=== PATIENT | female | born 1980 | race African-American/Black ===

== ENCOUNTER 2019-11-01 05:30 | Emergency (ER) | payer MEDICAID ==
[~2019-11-01] VITALS: Ht 154.9 cm; Wt 108.2 kg
[~2019-11-01 05:30] MED LIST: NORCO 325 MG-51 TAB PO
[2019-11-01 05:36] VITALS: TEMP 97.9
[2019-11-01 06:44] LABS: BASO # 0.1 (0.0-0.2); BASO % 0.8 % (0.0-2.0); EOS # 0.4 (0.0-0.7); EOS % 5.3 % (0-4.0); GRAN # 3.2 (1.4-6.5); GRAN % 41.8 % (42.2-75.2); HEMOGLOBIN 12.1 g/dl (12.5-16.0); LYMPH # 3.1 (1.2-3.4); MEAN CELL VOLUME 86 fl (80.0-100.0); MEAN CORPUSCULAR HEMOGLOBIN 28 pg (27.0-31.0); MEAN CORPUSCULAR HGB CONC 33 g/dl (33.0-37.0); MEAN PLATELET VOLUME 10.2 fl (7.4-10.4); MONO # 0.8 (0.1-0.6); PLATELET COUNT 319 K/mm3 (130-400); REDCELL DISTRIBUTION WIDTH-CV 13.8 % (11.5-14.5)
[2019-11-01 06:51] LABS: HEMATOCRIT 36.9 % (37.0-47.0)
[2019-11-01 06:54] LABS: ALBUMIN 3.9 gm/dL (3.5-5.0); BILIRUBIN,TOTAL 0.6 mg/dL (0.0-1.0); CALCIUM 9.6 mg/dL (8.4-10.2); CREATININE, serum 0.87 (0.52-1.25); POTASSIUM 4.2 mmol/L (3.4-5.0); TOTAL PROTEIN 7.6 gm/dL (6.4-8.2)
[2019-11-01] MEDS ORDERED: MEDROL 4MG DOSPA4 MG PO (07:19)
[2019-11-01 08:35] VITALS: PULSE 72
[2019-11-01] MEDS ORDERED: CLEOCIN HCL300 MG PO (08:36)
== END 2019-11-01 08:35 | disposition home or self-care (01) ==
LOC: COL.ER 05:30
PROVIDERS: Emergency Medicine
DX: R21 Rash and other nonspecific skin eruption (principal)
CPT/HCPCS: J7030; J7512

== ENCOUNTER 2019-12-29 05:33 | Day surgery (SDC) | payer MEDICAID ==
[~2019-12-29] VITALS: Ht 154.9 cm; Wt 108.0 kg
[~2019-12-29 05:33] MED LIST changes: +CLEOCIN HCL300 MG PO; +MEDROL 4MG DOSPA4 MG PO
[2019-12-29 06:08] VITALS: BP 137/107; PULSE 61; TEMP 97.3
--- NOTE | 2019-12-29 06:58 | NUR ---
Nursing staff is unable to get a PIV started after 2 attempts. TABLE MAKER, Willie Lewis, is notified and comes to the bedside to attempt. He is aware that the patient has not received IV Pepcid, as no access has been obtained.
--- NOTE | 2019-12-29 09:05 | NUR ---
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 She is escorted to the restroom by staff, voids, and returns to room.
[2019-12-29 09:20] VITALS: BP 130/78; PULSE 52; TEMP 97.1
--- NOTE | 2019-12-29 09:20 | NUR ---
Patient arrives to [facility] [place] [facility] via cart, accompanied by PNEUMATIC PRESS HAND Cassandra. She is sitting up in bed, alert and oriented. Monitoring is applied - VSS on room air. She denies pain or nausea. She is offered and receives juice and toast to eat. She has her call light in reach. She denies other needs at this time. Will continue to monitor.
[2019-12-29 09:35] VITALS: BP 136/83; PULSE 57
--- NOTE | 2019-12-29 09:35 | NUR ---
VSS on room air. Denies pain or nausea. Tolarating PO well. She ate 2 pieces of toast and drank 8 oz of juice. PIV to TKO.
[2019-12-29 09:50] VITALS: BP 142/81; PULSE 51
--- NOTE | 2019-12-29 09:50 | NUR ---
VSS on room air. Patient requests to use the restroom. She ambulates to the restroom with standby assistance, voids, and returns to room.
--- NOTE | 2019-12-29 10:17 | NUR ---
Patient has met discharge criteria. Discharge instructions are discussed. She denies any questions and verbalizes understanding. PIV is removed with catheter intact and hemostasis achieved. She changes to her clothing independently. She is escorted to the exit via wheelchair and discharged to home with her sister as her ride in private vehicle at [id number].
== END 2019-12-29 10:17 | disposition home or self-care (01) ==
LOC: SDCO 05:33
DX: N20.1 Calculus of ureter (principal); Z90.710 Acquired absence of both cervix and uterus; Z88.8 Allergy status to other drugs, medicaments and biological substances
CPT/HCPCS: C1769; C2617; J0690; J1100; J1885; J2405; J2704; J3010; Q9967

== ENCOUNTER 2021-06-21 14:14 | Emergency (ER) | payer MEDICAID ==
[~2021-06-21] VITALS: Ht 154.9 cm; Wt 108.2 kg
[2021-06-21 14:34] VITALS: BP 146/58; TEMP 98
[2021-06-21 15:33] LABS: STREP SCREEN NEGATIVE
[2021-06-21 18:00] VITALS: PULSE 72
[2021-06-21 18:17] LABS: MONOSCREEN NEGATIVE
== END 2021-06-21 18:00 | disposition home or self-care (01) ==
LOC: COL.ER 14:14
PROVIDERS: Nurse Practitioner Family
DX: J02.9 Acute pharyngitis, unspecified (principal); Z20.822 Contact with and (suspected) exposure to COVID-19